=== PATIENT | female | born 1960 | race Caucasian/White ===

== ENCOUNTER → 2016-11-30 | Outpatient (CLI) | payer OTHER ==
[~2016-11-30] MED LIST: CARV6.252 PO; CYCL-259 PO; DIGO250T PO; FOLI-17 PO; FURO-92 PO; HYDR-882 PO; HYDR200T PO; LISI2.5T PO; METH25VI9 IM; OMEP40CA3 PO; PRED5TAB PO; SIMV20TA3 PO; SPIR25TA3 PO
[2016-11-30 11:48] LABS: ASPARTATE AMINO TRANSFERASE 20 U/L (15-37); BLOOD UREA NITROGEN 11 mg/dL (7-18)
== END | disposition home or self-care (01) ==
LOC: LAB 11:17
PROVIDERS: ATTEND Specialist
DX: M05.79 Rheumatoid arthritis with rheumatoid factor of multiple sites without organ or systems involvement (principal); Z92.25 Personal history of immunosuppression therapy
CPT/HCPCS: 36415; 80053; 85025

== ENCOUNTER 2020-12-21 15:39 | Outpatient (CLI) | payer MEDICARE, MEDICAID ==
[~2020-12-21 15:39] MED LIST changes: -CYCL-259 PO; +CYCL10TA2 PO; -DIGO250T PO; +DIGO250T3 PO; -FOLI-17 PO; +FOLI1TAB32 PO; +HYDR-3653 PO; -HYDR-882 PO; -HYDR200T PO; +HYDR200T72 PO; +METH25VI62 IM; -METH25VI9 IM; +SIMV20TA19 PO; -SIMV20TA3 PO; -SPIR25TA3 PO; +SPIR25TA5 PO
== END 2020-12-21 23:59 | disposition home or self-care (01) ==
LOC: CFH 15:39
PROVIDERS: ATTEND Internal Medicine Cardiovascular Disease
DX: I08.8 Other rheumatic multiple valve diseases (principal); I42.9 Cardiomyopathy, unspecified; I11.9 Hypertensive heart disease without heart failure; E78.5 Hyperlipidemia, unspecified; Z95.0 Presence of cardiac pacemaker
CPT/HCPCS: 93306